=== PATIENT | male | born 1955 | race Caucasian/White ===

== ENCOUNTER 2022-10-29 17:33 | Inpatient (IN) | payer OTHER ==
[~2022-10-29] VITALS: Ht 182.9 cm; Wt 79.4 kg
[~2022-10-29 17:33] MED LIST: AMLODIPINE-ATO1 EAC1 PO; CARISOPRODOL350 MG PO; CLONIDINE HCL0.2 MG PO; HYDROCODONE 7.5/325 PO; HYDROCODONE PO; IBUPROFEN 800 MG; METOPROLOL TART25 MG PO; NIFEDIPINE ER30 M1 PO
[2022-10-29 18:26] LABS: BASOPHILS # (AUTO) 0.1 (0.0-0.1); BASOPHILS % 0.8 % (0.0-1.0); EOSINOPHILS % 0.2 % (0.0-6.0); HEMATOCRIT 36.9 % (38.2-49.6); HEMOGLOBIN 11.8 g/dL (14.0-18.0); LYMPHOCYTES % 11.8 % (18.0-39.1); MEAN CORPUSCULAR HEMOGLOBIN 30.6 pg (28-32); MEAN CORPUSCULAR VOLUME 95.8 fL (81-99); MONOCYTES # (AUTO) 0.9 (0.2-0.8); MONOCYTES % 10.7 % (4.4-11.3); NEUTROPHILS # (AUTO) 6.5 (2.1-6.9); NEUTROPHILS % 76.3 % (38.7-80.0); PLATELET COUNT 413 x10e3/uL (140-360); RED BLOOD COUNT 3.85 x10e6/uL (4.3-5.7); RED CELL DISTRIBUTION WIDTH 12.7 % (11.7-14.4)
[2022-10-29 18:35] LABS: INR 1.13
[2022-10-29 18:36] LABS: PARTIAL THROMBOPLASTIN TIME 38.8 seconds (23.8-35.5)
[2022-10-29 20:07] LABS: ALANINE AMINOTRANSFERASE 11 IU/L (0-55); ALBUMIN 2.1 g/dL (3.5-5.0); ALBUMIN/GLOBULIN RATIO 0.5 (0.8-2.0); ALKALINE PHOSPHATASE 83 IU/L (40-150); ANION GAP 15.6 mmol/L (8-16); BLOOD UREA NITROGEN 12 mg/dL (7-26); BUN/CREATININE RATIO 13 (6-25); CALCIUM 8.7 mg/dL (8.4-10.2); CARBON DIOXIDE 24 mmol/L (22-29); CHLORIDE 102 mmol/L (98-107); CREATININE, SERUM 0.92 mg/dL (0.72-1.25); GLUCOSE 113 mg/dL (74-118); POTASSIUM 3.6 mmol/L (3.5-5.1); SODIUM 138 mmol/L (136-145)
[2022-10-29] MEDS ORDERED: SODIUM CHLORIDE FLUSH 10 ML SYR INJ PRN (20:30)
[2022-10-29] MEDS ORDERED: ONDANSETRON HCL INJ 2MG/ML 2ML 2 MG/ML VIAL IV PRN (20:30)
[2022-10-29 22:39] VITALS: BP 154/105
[2022-10-29] MEDS: TRAMADOL HCL 50 MG TAB PO PRN (23:36)
[2022-10-29] MEDS: CHLORDIAZEPOXIDE HCL 25 MG CAP PO PRN (23:36)
[2022-10-29] MEDS: CLONIDINE HCL 0.1 MG TAB PO PRN (23:37)
[2022-10-30] VITALS (8 sets, daily range): BP systolic 122–157; BP diastolic 98–115
[2022-10-30] MEDS ORDERED: THIAMINE HCL INJ 100 MG/ML 2ML VIAL IV ONE (03:00)
[2022-10-30 03:32] LABS: FERRITIN 110.79 ng/mL (21.81-274.66)
[2022-10-30] MEDS ORDERED: FUROSEMIDE INJ 10 MG/ML 4 ML VIAL IV ONE (04:15)
[2022-10-30] MEDS ORDERED: SPIRONOLACTONE 25 MG TAB PO ONE (04:15)
[2022-10-30 07:03] LABS: BASOPHILS # (AUTO) 0.1 (0.0-0.1); BASOPHILS % 0.9 % (0.0-1.0); EOSINOPHILS # (AUTO) 0.1 (0.0-0.4); EOSINOPHILS % 1.2 % (0.0-6.0); HEMATOCRIT 29.5 % (38.2-49.6); HEMOGLOBIN 9.8 g/dL (14.0-18.0); LYMPHOCYTES # (AUTO) 1.3 (1.0-3.2); LYMPHOCYTES % 20.3 % (18.0-39.1); MEAN CORPUSCULAR HEMOGLOBIN 31.9 pg (28-32); MEAN CORPUSCULAR HGB CONC 33.2 g/dL (31-35); MEAN CORPUSCULAR VOLUME 96.1 fL (81-99); MONOCYTES # (AUTO) 0.9 (0.2-0.8); MONOCYTES % 14.1 % (4.4-11.3); NEUTROPHILS # (AUTO) 4.2 (2.1-6.9); NEUTROPHILS % 63.2 % (38.7-80.0); PLATELET COUNT 302 x10e3/uL (140-360); RED BLOOD COUNT 3.07 x10e6/uL (4.3-5.7); RED CELL DISTRIBUTION WIDTH 12.8 % (11.7-14.4)
[2022-10-30 07:21] LABS: ALBUMIN 1.8 g/dL (3.5-5.0); ALBUMIN/GLOBULIN RATIO 0.5 (0.8-2.0); ANION GAP 12.2 mmol/L (8-16); CALCIUM 8.2 mg/dL (8.4-10.2); CREATININE, SERUM 0.83 mg/dL (0.72-1.25); POTASSIUM 3.2 mmol/L (3.5-5.1)
[2022-10-30] MEDS ORDERED: FUROSEMIDE 40 MG TAB PO SCH (09:00)
[2022-10-30] MEDS ORDERED: THIAMINE HCL INJ 100 MG/ML 2ML VIAL IV SCH (09:00)
[2022-10-30] MEDS ORDERED: SPIRONOLACTONE 25 MG TAB PO SCH (09:00)
[2022-10-30] MEDS: IRON SUCROSE 100 MG in SODIUM CHLORIDE 0.9% 100 ML IV SCH ×2 (13:25→18:38)
[2022-10-30] MEDS: MULTIVITAMINS/MINERALS TAB PO SCH (18:06)
[2022-10-30] MEDS: CHLORDIAZEPOXIDE HCL 25 MG CAP PO PRN (21:56)
[2022-10-30] MEDS: TRAMADOL HCL 50 MG TAB PO PRN (21:56)
[2022-10-30] MEDS: CLONIDINE HCL 0.1 MG TAB PO PRN (21:57)
[2022-10-31] MEDS ORDERED: POTASSIUM CHLORIDE 10MEQ EA PO STA (00:32)
[2022-10-31 00:40] VITALS: BP 154/102
[2022-10-31] MEDS ORDERED: CYANOCOBALAMIN INJ 1,000 MCG/ML VIAL IM ONE (00:45)
[2022-10-31 04:00] VITALS: BP 126/92
[2022-10-31] MEDS: FUROSEMIDE 40 MG TAB PO SCH ×2 (05:25→17:04)
[2022-10-31 06:14] LABS: BASOPHILS # (AUTO) 0.1 (0.0-0.1); BASOPHILS % 0.9 % (0.0-1.0); EOSINOPHILS # (AUTO) 0.1 (0.0-0.4); HEMATOCRIT 31.7 % (38.2-49.6); HEMOGLOBIN 10.4 g/dL (14.0-18.0); LYMPHOCYTES # (AUTO) 1.1 (1.0-3.2); MEAN CORPUSCULAR HEMOGLOBIN 31.8 pg (28-32); MEAN CORPUSCULAR HGB CONC 32.8 g/dL (31-35); MEAN CORPUSCULAR VOLUME 96.9 fL (81-99); MONOCYTES # (AUTO) 0.9 (0.2-0.8); MONOCYTES % 13.4 % (4.4-11.3); NEUTROPHILS # (AUTO) 4.2 (2.1-6.9); NEUTROPHILS % 65.4 % (38.7-80.0); PLATELET COUNT 302 x10e3/uL (140-360); RED BLOOD COUNT 3.27 x10e6/uL (4.3-5.7); RED CELL DISTRIBUTION WIDTH 12.5 % (11.7-14.4)
[2022-10-31 06:47] LABS: ANION GAP 10.9 mmol/L (8-16); CALCIUM 8.2 mg/dL (8.4-10.2); CREATININE, SERUM 0.87 mg/dL (0.72-1.25); POTASSIUM 3.9 mmol/L (3.5-5.1)
[2022-10-31] MEDS ORDERED: SPIRONOLACTONE 25 MG TAB PO SCH (09:00)
[2022-10-31] MEDS ORDERED: FUROSEMIDE 40 MG TAB PO SCH (09:00)
[2022-10-31 09:15] VITALS: BP 152/95
[2022-10-31] MEDS: CYANOCOBALAMIN INJ 1,000 MCG/ML VIAL IM SCH (09:58)
[2022-10-31] MEDS: THIAMINE HCL INJ 100 MG/ML 2ML VIAL IV SCH (10:12)
[2022-10-31] MEDS: MULTIVITAMINS/MINERALS TAB PO SCH (10:13)
[2022-10-31] MEDS: SPIRONOLACTONE 25 MG TAB PO SCH ×2 (10:14→17:05)
[2022-10-31] MEDS ORDERED: SODIUM CHLORIDE 0.9% 250ML 250 ML ONE (11:26)
[2022-10-31 12:00] VITALS: BP 153/107
[2022-10-31] MEDS: IRON SUCROSE 100 MG in SODIUM CHLORIDE 0.9% 100 ML IV SCH (12:13)
[2022-10-31 16:06] VITALS: BP 170/104
[2022-10-31 20:00] VITALS: BP 148/99
[2022-10-31] MEDS: TRAMADOL HCL 50 MG TAB PO PRN (20:27)
[2022-10-31] MEDS: CHLORDIAZEPOXIDE HCL 25 MG CAP PO PRN (20:27)
[2022-11-01] VITALS (7 sets, daily range): BP systolic 133–174; BP diastolic 81–110
[2022-11-01] MEDS: TRAMADOL HCL 50 MG TAB PO PRN ×2 (02:06→17:24)
[2022-11-01] MEDS: FUROSEMIDE 40 MG TAB PO SCH ×3 (05:09→17:25)
[2022-11-01 06:05] LABS: BASOPHILS # (AUTO) 0.1 (0.0-0.1); BASOPHILS % 0.8 % (0.0-1.0); EOSINOPHILS % 0.6 % (0.0-6.0); HEMATOCRIT 30.6 % (38.2-49.6); HEMOGLOBIN 9.9 g/dL (14.0-18.0); LYMPHOCYTES % 13.9 % (18.0-39.1); MEAN CORPUSCULAR HEMOGLOBIN 32.1 pg (28-32); MEAN CORPUSCULAR HGB CONC 32.4 g/dL (31-35); MEAN CORPUSCULAR VOLUME 99.4 fL (81-99); MONOCYTES # (AUTO) 0.9 (0.2-0.8); MONOCYTES % 12.3 % (4.4-11.3); NEUTROPHILS # (AUTO) 5.2 (2.1-6.9); NEUTROPHILS % 72.1 % (38.7-80.0); PLATELET COUNT 295 x10e3/uL (140-360); RED BLOOD COUNT 3.08 x10e6/uL (4.3-5.7); RED CELL DISTRIBUTION WIDTH 12.9 % (11.7-14.4)
[2022-11-01 06:31] LABS: ANION GAP 13.4 mmol/L (8-16); CREATININE, SERUM 0.86 mg/dL (0.72-1.25); POTASSIUM 3.4 mmol/L (3.5-5.1)
[2022-11-01] MEDS: MULTIVITAMINS/MINERALS TAB PO SCH (09:00)
[2022-11-01] MEDS: CYANOCOBALAMIN INJ 1,000 MCG/ML VIAL IM SCH (09:00)
[2022-11-01] MEDS: SPIRONOLACTONE 25 MG TAB PO SCH ×2 (09:00→17:18)
[2022-11-01] MEDS: THIAMINE HCL INJ 100 MG/ML 2ML VIAL IV SCH (10:22)
[2022-11-01] MEDS ORDERED: SODIUM CHLORIDE 0.9% 250ML 0 ML ONE (10:34)
[2022-11-01] MEDS: IRON SUCROSE 100 MG in SODIUM CHLORIDE 0.9% 100 ML IV SCH (11:45)
[2022-11-01] MEDS: CHLORDIAZEPOXIDE HCL 25 MG CAP PO PRN (22:57)
[2022-11-02] VITALS (8 sets, daily range): BP systolic 113–161; BP diastolic 64–103
[2022-11-02] MEDS ORDERED: POTASSIUM CHLORIDE 10MEQ EA PO STA (00:46)
[2022-11-02] MEDS: FUROSEMIDE 40 MG TAB PO SCH (05:23)
[2022-11-02] MEDS: THIAMINE HCL INJ 100 MG/ML 2ML VIAL IV SCH (08:52)
[2022-11-02] MEDS: CYANOCOBALAMIN INJ 1,000 MCG/ML VIAL IM SCH (08:52)
[2022-11-02] MEDS: MULTIVITAMINS/MINERALS TAB PO SCH (08:53)
[2022-11-02] MEDS: SPIRONOLACTONE 25 MG TAB PO SCH ×2 (08:53→17:00)
[2022-11-02] MEDS: POTASSIUM CHLORIDE 10MEQ EA PO SCH ×2 (11:34→18:11)
[2022-11-02] MEDS ORDERED: ALBUMIN 25% 12.5GM 50ML 150 ML IV ONE (13:20)
[2022-11-02] MEDS: IRON SUCROSE 100 MG in SODIUM CHLORIDE 0.9% 100 ML IV SCH (15:09)
[2022-11-02] MEDS: FUROSEMIDE INJ 10 MG/ML 4 ML VIAL IV SCH ×2 (15:09→17:03)
[2022-11-02] MEDS: TRAMADOL HCL 50 MG TAB PO PRN (15:14)
[2022-11-02 16:03] LABS: BODY FLUID APPEARANCE CLOUDY; BODY FLUID COLOR YELLOW; BODY FLUID TYPE PERITONEAL; RBC,BODY FLUID < 2000 cells/uL; WBC,BODY FLUID 106 cells/uL
[2022-11-02 16:44] LABS: LYMPHOCYTES,BODY FLUID 26 %; MONO/MACROPHG,BODY FLUID 24 %; NEUTROPHILS,BODY FLUID 10 %; OTHER CELLS,BODY FLUID 40 %
[2022-11-02] MEDS: CHLORDIAZEPOXIDE HCL 25 MG CAP PO PRN (22:39)
[2022-11-03] VITALS (8 sets, daily range): BP systolic 122–177; BP diastolic 71–99
[2022-11-03 06:25] LABS: ANION GAP 12.8 mmol/L (8-16); CALCIUM 8.3 mg/dL (8.4-10.2); POTASSIUM 3.8 mmol/L (3.5-5.1)
[2022-11-03] MEDS: POTASSIUM CHLORIDE 10MEQ EA PO SCH ×2 (08:16→18:41)
[2022-11-03] MEDS: SPIRONOLACTONE 25 MG TAB PO SCH ×2 (08:16→18:42)
[2022-11-03] MEDS: THIAMINE HCL 100 MG TAB PO SCH (08:16)
[2022-11-03] MEDS: CYANOCOBALAMIN 1,000 MCG TAB PO SCH (08:17)
[2022-11-03] MEDS: FUROSEMIDE INJ 10 MG/ML 4 ML VIAL IV SCH ×2 (08:17→11:37)
[2022-11-03] MEDS: MULTIVITAMINS/MINERALS TAB PO SCH (08:17)
[2022-11-03] MEDS: FOLIC ACID 1 MG TAB PO SCH (08:17)
[2022-11-03] MEDS: TRAMADOL HCL 50 MG TAB PO PRN ×2 (08:23→15:59)
[2022-11-03] MEDS: IRON SUCROSE 100 MG in SODIUM CHLORIDE 0.9% 100 ML IV SCH (11:37)
[2022-11-03] MEDS: CHLORDIAZEPOXIDE HCL 25 MG CAP PO PRN (21:46)
[2022-11-04] VITALS (8 sets, daily range): BP systolic 115–147; BP diastolic 77–95
[2022-11-04 05:51] LABS: BASOPHILS # (AUTO) 0.1 (0.0-0.1); BASOPHILS % 0.9 % (0.0-1.0); EOSINOPHILS # (AUTO) 0.1 (0.0-0.4); EOSINOPHILS % 1.6 % (0.0-6.0); HEMATOCRIT 31.1 % (38.2-49.6); HEMOGLOBIN 10.1 g/dL (14.0-18.0); LYMPHOCYTES # (AUTO) 1.2 (1.0-3.2); LYMPHOCYTES % 14.6 % (18.0-39.1); MEAN CORPUSCULAR HEMOGLOBIN 31.3 pg (28-32); MEAN CORPUSCULAR HGB CONC 32.5 g/dL (31-35); MEAN CORPUSCULAR VOLUME 96.3 fL (81-99); MONOCYTES # (AUTO) 0.9 (0.2-0.8); MONOCYTES % 11.9 % (4.4-11.3); NEUTROPHILS # (AUTO) 5.6 (2.1-6.9); NEUTROPHILS % 70.5 % (38.7-80.0); PLATELET COUNT 276 x10e3/uL (140-360); RED BLOOD COUNT 3.23 x10e6/uL (4.3-5.7); RED CELL DISTRIBUTION WIDTH 12.6 % (11.7-14.4)
[2022-11-04 06:26] LABS: ALBUMIN 1.8 g/dL (3.5-5.0); ALBUMIN/GLOBULIN RATIO 0.5 (0.8-2.0); ANION GAP 13.9 mmol/L (8-16); CREATININE, SERUM 0.97 mg/dL (0.72-1.25); POTASSIUM 3.9 mmol/L (3.5-5.1)
[2022-11-04] MEDS ORDERED: ONDANSETRON HCL 4 MG ORAL DISINTEGRATING TAB PO PRN (08:30)
[2022-11-04] MEDS: THIAMINE HCL 100 MG TAB PO SCH (09:28)
[2022-11-04] MEDS: CYANOCOBALAMIN 1,000 MCG TAB PO SCH (09:29)
[2022-11-04] MEDS: SPIRONOLACTONE 25 MG TAB PO SCH ×2 (09:29→16:35)
[2022-11-04] MEDS: FOLIC ACID 1 MG TAB PO SCH (09:29)
[2022-11-04] MEDS: POTASSIUM CHLORIDE 10MEQ EA PO SCH ×2 (09:30→16:35)
[2022-11-04] MEDS: IRON SUCROSE 100 MG in SODIUM CHLORIDE 0.9% 100 ML IV SCH (09:30)
[2022-11-04] MEDS: MULTIVITAMINS/MINERALS TAB PO SCH (09:30)
[2022-11-04] MEDS: FUROSEMIDE INJ 10 MG/ML 4 ML VIAL IV SCH ×2 (09:33→12:00)
[2022-11-04] MEDS: TRAMADOL HCL 50 MG TAB PO PRN ×2 (13:45→21:42)
[2022-11-05] VITALS (8 sets, daily range): BP systolic 113–145; BP diastolic 88–98
[2022-11-05] MEDS: CHLORDIAZEPOXIDE HCL 25 MG CAP PO PRN ×2 (01:04→22:46)
[2022-11-05] MEDS: CYANOCOBALAMIN 1,000 MCG TAB PO SCH (08:49)
[2022-11-05] MEDS: FOLIC ACID 1 MG TAB PO SCH (08:49)
[2022-11-05] MEDS: SPIRONOLACTONE 25 MG TAB PO SCH ×2 (08:49→16:24)
[2022-11-05] MEDS: POTASSIUM CHLORIDE 10MEQ EA PO SCH ×2 (08:49→16:24)
[2022-11-05] MEDS: THIAMINE HCL 100 MG TAB PO SCH (08:49)
[2022-11-05] MEDS: MULTIVITAMINS/MINERALS TAB PO SCH (08:49)
[2022-11-05] MEDS: FUROSEMIDE INJ 10 MG/ML 4 ML VIAL IV SCH ×2 (08:49→12:36)
[2022-11-05] MEDS: TRAMADOL HCL 50 MG TAB PO PRN ×2 (12:36→22:46)
[2022-11-05] MEDS: IRON SUCROSE 100 MG in SODIUM CHLORIDE 0.9% 100 ML IV SCH (12:42)
[2022-11-06] VITALS (8 sets, daily range): BP systolic 97–141; BP diastolic 62–98
[2022-11-06 07:36] LABS: ANION GAP 14.5 mmol/L (8-16); CALCIUM 8.8 mg/dL (8.4-10.2); CREATININE, SERUM 1.07 mg/dL (0.72-1.25); POTASSIUM 4.5 mmol/L (3.5-5.1)
[2022-11-06] MEDS: FUROSEMIDE INJ 10 MG/ML 4 ML VIAL IV SCH ×2 (09:38→13:30)
[2022-11-06] MEDS: CYANOCOBALAMIN 1,000 MCG TAB PO SCH (09:39)
[2022-11-06] MEDS: THIAMINE HCL 100 MG TAB PO SCH (09:39)
[2022-11-06] MEDS: SPIRONOLACTONE 25 MG TAB PO SCH ×2 (09:39→17:04)
[2022-11-06] MEDS: POTASSIUM CHLORIDE 10MEQ EA PO SCH ×2 (09:39→17:05)
[2022-11-06] MEDS: FOLIC ACID 1 MG TAB PO SCH (09:39)
[2022-11-06] MEDS: MULTIVITAMINS/MINERALS TAB PO SCH (09:39)
[2022-11-06] MEDS: TAMSULOSIN HCL 0.4 MG CAP PO SCH (17:05)
[2022-11-07] VITALS (7 sets, daily range): BP systolic 128–158; BP diastolic 71–108
[2022-11-07] MEDS: CHLORDIAZEPOXIDE HCL 25 MG CAP PO PRN ×2 (00:11→21:19)
[2022-11-07 07:55] LABS: BASOPHILS # (AUTO) 0.1 (0.0-0.1); BASOPHILS % 0.9 % (0.0-1.0); EOSINOPHILS # (AUTO) 0.1 (0.0-0.4); EOSINOPHILS % 1.4 % (0.0-6.0); HEMATOCRIT 31.9 % (38.2-49.6); HEMOGLOBIN 10.6 g/dL (14.0-18.0); LYMPHOCYTES # (AUTO) 1.3 (1.0-3.2); LYMPHOCYTES % 19.9 % (18.0-39.1); MEAN CORPUSCULAR HEMOGLOBIN 32.3 pg (28-32); MEAN CORPUSCULAR HGB CONC 33.2 g/dL (31-35); MEAN CORPUSCULAR VOLUME 97.3 fL (81-99); MONOCYTES # (AUTO) 0.8 (0.2-0.8); NEUTROPHILS # (AUTO) 4.3 (2.1-6.9); NEUTROPHILS % 65.3 % (38.7-80.0); PLATELET COUNT 295 x10e3/uL (140-360); RED BLOOD COUNT 3.28 x10e6/uL (4.3-5.7); RED CELL DISTRIBUTION WIDTH 13.2 % (11.7-14.4)
[2022-11-07] MEDS: FUROSEMIDE INJ 10 MG/ML 4 ML VIAL IV SCH ×2 (08:03→13:08)
[2022-11-07 08:31] LABS: ANION GAP 15.2 mmol/L (8-16); CALCIUM 8.4 mg/dL (8.4-10.2); CREATININE, SERUM 1.06 mg/dL (0.72-1.25); POTASSIUM 4.2 mmol/L (3.5-5.1)
[2022-11-07] MEDS: FOLIC ACID 1 MG TAB PO SCH (09:58)
[2022-11-07] MEDS: THIAMINE HCL 100 MG TAB PO SCH (09:58)
[2022-11-07] MEDS: POTASSIUM CHLORIDE 10MEQ EA PO SCH ×2 (09:58→17:57)
[2022-11-07] MEDS: MULTIVITAMINS/MINERALS TAB PO SCH (09:58)
[2022-11-07] MEDS: TAMSULOSIN HCL 0.4 MG CAP PO SCH ×2 (09:58→17:57)
[2022-11-07] MEDS: SPIRONOLACTONE 25 MG TAB PO SCH ×2 (09:59→17:57)
[2022-11-07] MEDS: IRON-VITAMIN-MINERAL CAPSULE PO SCH ×2 (09:59→17:57)
[2022-11-07] MEDS: CYANOCOBALAMIN 1,000 MCG TAB PO SCH (09:59)
[2022-11-07] MEDS: TRAMADOL HCL 50 MG TAB PO PRN (21:19)
[2022-11-08] VITALS (7 sets, daily range): BP systolic 105–147; BP diastolic 86–96
[2022-11-08 06:15] LABS: BASOPHILS # (AUTO) 0.1 (0.0-0.1); BASOPHILS % 0.8 % (0.0-1.0); EOSINOPHILS # (AUTO) 0.1 (0.0-0.4); EOSINOPHILS % 1.2 % (0.0-6.0); HEMATOCRIT 30.4 % (38.2-49.6); HEMOGLOBIN 10.1 g/dL (14.0-18.0); LYMPHOCYTES # (AUTO) 1.2 (1.0-3.2); MEAN CORPUSCULAR HEMOGLOBIN 32.9 pg (28-32); MEAN CORPUSCULAR HGB CONC 33.2 g/dL (31-35); MONOCYTES # (AUTO) 0.8 (0.2-0.8); MONOCYTES % 11.9 % (4.4-11.3); NEUTROPHILS # (AUTO) 4.5 (2.1-6.9); NEUTROPHILS % 67.8 % (38.7-80.0); PLATELET COUNT 277 x10e3/uL (140-360); RED BLOOD COUNT 3.07 x10e6/uL (4.3-5.7); RED CELL DISTRIBUTION WIDTH 13.4 % (11.7-14.4)
[2022-11-08 06:36] LABS: ANION GAP 14.1 mmol/L (8-16); CALCIUM 8.6 mg/dL (8.4-10.2); CREATININE, SERUM 1.12 mg/dL (0.72-1.25); POTASSIUM 4.1 mmol/L (3.5-5.1)
[2022-11-08] MEDS: MULTIVITAMINS/MINERALS TAB PO SCH (09:04)
[2022-11-08] MEDS: FUROSEMIDE INJ 10 MG/ML 4 ML VIAL IV SCH ×3 (09:04→12:35)
[2022-11-08] MEDS: SPIRONOLACTONE 25 MG TAB PO SCH ×2 (09:05→16:27)
[2022-11-08] MEDS: POTASSIUM CHLORIDE 10MEQ EA PO SCH ×2 (09:05→16:27)
[2022-11-08] MEDS: CYANOCOBALAMIN 1,000 MCG TAB PO SCH (09:05)
[2022-11-08] MEDS: FOLIC ACID 1 MG TAB PO SCH (09:05)
[2022-11-08] MEDS: THIAMINE HCL 100 MG TAB PO SCH (09:05)
[2022-11-08] MEDS: TAMSULOSIN HCL 0.4 MG CAP PO SCH ×2 (09:06→16:27)
[2022-11-08] MEDS: IRON-VITAMIN-MINERAL CAPSULE PO SCH ×2 (09:06→16:26)
[2022-11-08] MEDS: TRAMADOL HCL 50 MG TAB PO PRN (18:23)
[2022-11-08] MEDS: CHLORDIAZEPOXIDE HCL 25 MG CAP PO PRN (21:22)
[2022-11-09] VITALS (8 sets, daily range): BP systolic 119–143; BP diastolic 72–92
[2022-11-09 06:31] LABS: ALBUMIN 2.1 g/dL (3.5-5.0); ALBUMIN/GLOBULIN RATIO 0.5 (0.8-2.0); ANION GAP 12.3 mmol/L (8-16); CREATININE, SERUM 1.11 mg/dL (0.72-1.25); POTASSIUM 4.3 mmol/L (3.5-5.1)
[2022-11-09] MEDS: TAMSULOSIN HCL 0.4 MG CAP PO SCH ×2 (09:13→17:06)
[2022-11-09] MEDS: MULTIVITAMINS/MINERALS TAB PO SCH (09:13)
[2022-11-09] MEDS: IRON-VITAMIN-MINERAL CAPSULE PO SCH ×2 (09:13→17:06)
[2022-11-09] MEDS: FOLIC ACID 1 MG TAB PO SCH (09:13)
[2022-11-09] MEDS: FUROSEMIDE INJ 10 MG/ML 4 ML VIAL IV SCH ×2 (09:13→12:29)
[2022-11-09] MEDS: THIAMINE HCL 100 MG TAB PO SCH (09:13)
[2022-11-09] MEDS: CYANOCOBALAMIN 1,000 MCG TAB PO SCH (09:14)
[2022-11-09] MEDS: SPIRONOLACTONE 25 MG TAB PO SCH ×2 (09:14→17:06)
[2022-11-09] MEDS: POTASSIUM CHLORIDE 10MEQ EA PO SCH ×2 (09:14→17:07)
[2022-11-09] MEDS: CHLORDIAZEPOXIDE HCL 25 MG CAP PO PRN (20:59)
[2022-11-10] VITALS (8 sets, daily range): BP systolic 125–159; BP diastolic 86–93
[2022-11-10] MEDS: THIAMINE HCL 100 MG TAB PO SCH (11:54)
[2022-11-10] MEDS: FUROSEMIDE INJ 10 MG/ML 4 ML VIAL IV SCH ×2 (11:54→14:36)
[2022-11-10] MEDS: MULTIVITAMINS/MINERALS TAB PO SCH (11:54)
[2022-11-10] MEDS: SPIRONOLACTONE 25 MG TAB PO SCH ×2 (11:54→17:06)
[2022-11-10] MEDS: CYANOCOBALAMIN 1,000 MCG TAB PO SCH (11:55)
[2022-11-10] MEDS: POTASSIUM CHLORIDE 10MEQ EA PO SCH ×2 (11:55→17:06)
[2022-11-10] MEDS: IRON-VITAMIN-MINERAL CAPSULE PO SCH ×2 (11:55→17:07)
[2022-11-10] MEDS: FOLIC ACID 1 MG TAB PO SCH (11:55)
[2022-11-10] MEDS: TAMSULOSIN HCL 0.4 MG CAP PO SCH ×2 (11:55→17:06)
[2022-11-10] MEDS: TRAMADOL HCL 50 MG TAB PO PRN (21:14)
[2022-11-11 01:32] VITALS: BP 146/76
[2022-11-11 06:02] LABS: BASOPHILS # (AUTO) 0.1 (0.0-0.1); BASOPHILS % 1.2 % (0.0-1.0); EOSINOPHILS # (AUTO) 0.1 (0.0-0.4); EOSINOPHILS % 1.2 % (0.0-6.0); HEMATOCRIT 31.9 % (38.2-49.6); HEMOGLOBIN 10.1 g/dL (14.0-18.0); LYMPHOCYTES # (AUTO) 1.3 (1.0-3.2); LYMPHOCYTES % 19.4 % (18.0-39.1); MEAN CORPUSCULAR HEMOGLOBIN 30.5 pg (28-32); MEAN CORPUSCULAR HGB CONC 31.7 g/dL (31-35); MEAN CORPUSCULAR VOLUME 96.4 fL (81-99); MONOCYTES # (AUTO) 0.9 (0.2-0.8); MONOCYTES % 13.4 % (4.4-11.3); NEUTROPHILS # (AUTO) 4.3 (2.1-6.9); NEUTROPHILS % 64.3 % (38.7-80.0); PLATELET COUNT 347 x10e3/uL (140-360); RED BLOOD COUNT 3.31 x10e6/uL (4.3-5.7); RED CELL DISTRIBUTION WIDTH 12.8 % (11.7-14.4)
[2022-11-11 06:15] VITALS: BP 130/78
[2022-11-11 06:24] LABS: ANION GAP 12.5 mmol/L (8-16); CALCIUM 9.3 mg/dL (8.4-10.2); CREATININE, SERUM 1.24 mg/dL (0.72-1.25); POTASSIUM 4.5 mmol/L (3.5-5.1)
[2022-11-11] MEDS: FUROSEMIDE INJ 10 MG/ML 4 ML VIAL IV SCH ×2 (08:00→12:00)
[2022-11-11 09:06] VITALS: BP 134/81
[2022-11-11] MEDS: TAMSULOSIN HCL 0.4 MG CAP PO SCH ×2 (09:15→17:14)
[2022-11-11] MEDS: CYANOCOBALAMIN 1,000 MCG TAB PO SCH (09:15)
[2022-11-11] MEDS: SPIRONOLACTONE 25 MG TAB PO SCH ×2 (09:15→17:00)
[2022-11-11] MEDS: IRON-VITAMIN-MINERAL CAPSULE PO SCH ×2 (09:15→17:13)
[2022-11-11] MEDS: THIAMINE HCL 100 MG TAB PO SCH (09:15)
[2022-11-11] MEDS: MULTIVITAMINS/MINERALS TAB PO SCH (09:15)
[2022-11-11] MEDS: FOLIC ACID 1 MG TAB PO SCH (09:15)
[2022-11-11] MEDS: POTASSIUM CHLORIDE 10MEQ EA PO SCH ×2 (09:15→17:14)
[2022-11-11 09:40] VITALS: BP 134/81
[2022-11-11 12:59] VITALS: BP 107/74
[2022-11-12] MEDS ORDERED: FUROSEMIDE 40 MG TAB PO SCH (08:00)
== END 2022-11-11 18:10 | disposition home or self-care (01) | DRG 433 ==
LOC: ER 18:16 → ERHOLD 20:20 → MED/SURG2 22:18
PROVIDERS: ADMIT Internal Medicine; ATTEND Internal Medicine
PROC: 0W9G3ZZ Drainage of Peritoneal Cavity, Percutaneous Approach (ICD-10-PCS; principal; 2022-11-02)
DX: K70.31 Alcoholic cirrhosis of liver with ascites (principal); E46 Unspecified protein-calorie malnutrition; J90 Pleural effusion, not elsewhere classified; I12.9 Hypertensive chronic kidney disease with stage 1 through stage 4 chronic kidney disease, or unspecified chronic kidney disease; N18.2 Chronic kidney disease, stage 2 (mild); G89.29 Other chronic pain; F10.20 Alcohol dependence, uncomplicated; E61.1 Iron deficiency; N50.89 Other specified disorders of the male genital organs; N40.0 Benign prostatic hyperplasia without lower urinary tract symptoms; R60.1 Generalized edema; D63.1 Anemia in chronic kidney disease; Z68.23 Body mass index [BMI] 23.0-23.9, adult; E87.8 Other disorders of electrolyte and fluid balance, not elsewhere classified; Z20.822 Contact with and (suspected) exposure to COVID-19
CPT/HCPCS: 0223U; 36415; 49083; 71045; 74176; 74470; 80048; 80053; 80320; 82040; 82140; 82607; 82728; 82746; 83540; 83880; 84157; 84466; 85025; 85045; 85610; 85730; 87070; 87205; 88112; 88305; 89051; 93005; 94799; 96360; 96361; 99252; 99284; C1729; J1756; J1940; J3411; J3420; J7050

== ENCOUNTER 2023-02-03 11:49 | Observation (INO) | payer OTHER ==
[~2023-02-03] VITALS: Ht 182.9 cm; Wt 68.0 kg
[2023-02-03] MEDS ORDERED: SODIUM CHLORIDE 0.9% 1000ML 1,000 ML ONE (12:41)
[2023-02-03] MEDS ORDERED: SODIUM CHLORIDE 0.9% 1000ML 1,000 ML IV STA ×2 (12:41→14:01)
[2023-02-03 13:50] LABS: ALBUMIN 3.6 g/dL (3.5-5.0); ALBUMIN/GLOBULIN RATIO 0.8 (0.8-2.0); ANION GAP 16.1 mmol/L (8-16); CALCIUM 9.2 mg/dL (8.4-10.2); CREATININE, SERUM 1.38 mg/dL (0.72-1.25)
[2023-02-03 13:51] LABS: POTASSIUM 6.1 mmol/L (3.5-5.1)
[2023-02-03] MEDS ORDERED: DEXTROSE 50% SYRINGE 50 ML IV STA (14:26)
[2023-02-03] MEDS ORDERED: ALBUTEROL SULF 0.083% NEB SOLN 3 ML NEB NEB STA (14:26)
[2023-02-03] MEDS ORDERED: ONDANSETRON HCL INJ 2MG/ML 2ML 2 MG/ML VIAL IV PRN (14:30)
[2023-02-03] MEDS ORDERED: INSULIN REGULAR, HUMAN 100 UNIT/1 ML IV ONE (14:30)
[2023-02-03 14:35] LABS: BASOPHILS # (AUTO) 0.1 (0.0-0.1); BASOPHILS % 0.9 % (0.0-1.0); EOSINOPHILS % 0.4 % (0.0-6.0); HEMATOCRIT 33.1 % (38.2-49.6); HEMOGLOBIN 10.5 g/dL (14.0-18.0); LYMPHOCYTES # (AUTO) 1.3 (1.0-3.2); LYMPHOCYTES % 12.4 % (18.0-39.1); MEAN CORPUSCULAR HEMOGLOBIN 27.3 pg (28-32); MEAN CORPUSCULAR HGB CONC 31.7 g/dL (31-35); MONOCYTES # (AUTO) 0.9 (0.2-0.8); MONOCYTES % 8.6 % (4.4-11.3); NEUTROPHILS # (AUTO) 7.9 (2.1-6.9); NEUTROPHILS % 77.4 % (38.7-80.0); PLATELET COUNT 462 x10e3/uL (140-360); RED BLOOD COUNT 3.85 x10e6/uL (4.3-5.7); RED CELL DISTRIBUTION WIDTH 13.2 % (11.7-14.4)
[2023-02-03 14:41] LABS: INR 1.07; PROTHROMBIN TIME 14.5 seconds (11.9-14.5)
[2023-02-03 14:42] LABS: PARTIAL THROMBOPLASTIN TIME 41.3 seconds (23.8-35.5)
[2023-02-03] MEDS ORDERED: CALCIUM GLUC 1 G/50 ML NACL 100 ML IV ONE (14:45)
[2023-02-03 14:49] VITALS: PULSE 74; RESP 20; O2SAT 98
[2023-02-03] MEDS ORDERED: SODIUM BICARBONATE 8.4% INJ 50 ML SYR IV ONE (15:00)
[2023-02-03] MEDS ORDERED: SIMETHICONE 80 MG CHEW PO PRN (18:45)
[2023-02-03] MEDS ORDERED: MELATONIN 3 MG TAB PO PRN (18:45)
[2023-02-03] MEDS ORDERED: DOCUSATE SODIUM 100 MG CAP PO PRN (18:45)
[2023-02-03 18:46] LABS: ANION GAP 17.9 mmol/L (8-16); CALCIUM 9.7 mg/dL (8.4-10.2); CREATININE, SERUM 1.31 mg/dL (0.72-1.25); POTASSIUM 4.9 mmol/L (3.5-5.1)
[2023-02-03 20:00] VITALS: BP 135/66; PULSE 88; RESP 18; TEMP 97.2; O2SAT 100
[2023-02-03 20:55] VITALS: PULSE 76; RESP 20; O2SAT 99
[2023-02-03] MEDS ORDERED: SPIRONOLACTONE50 MG PO (21:13)
[2023-02-03] MEDS ORDERED: B-1100 M1 PO (21:13)
[2023-02-03] MEDS ORDERED: CHLORDIAZEPOXID25 MG PO (21:13)
[2023-02-03] MEDS ORDERED: POTASSIUM CHLO20 ME1 PO (21:13)
[2023-02-03] MEDS ORDERED: FUROSEMIDE40 MG PO (21:13)
[2023-02-03] MEDS ORDERED: FOLIC ACID-VIT1 EACH PO (21:13)
[2023-02-03] MEDS ORDERED: AMLODIPINE BESY10 MG PO (21:13)
[2023-02-03] MEDS ORDERED: CLONIDINE HCL0.1 MG PO (21:13)
[2023-02-03] MEDS ORDERED: FLOMAX0.4 MG PO (21:13)
[2023-02-03 21:19] VITALS: BP 142/98; PULSE 78; RESP 18; O2SAT 99
[2023-02-03] MEDS: Morphine 2mg Syringe 2 MG/ML SYR IV PRN (22:33)
[2023-02-04] VITALS (8 sets, daily range): BP systolic 132–152; BP diastolic 71–91; PULSE 83–97; RESP 16–22; TEMP 97.5–98; O2SAT 96–100
[2023-02-04 05:30] LABS: BASOPHILS # (AUTO) 0.1 (0.0-0.1); BASOPHILS % 0.7 % (0.0-1.0); EOSINOPHILS # (AUTO) 0.1 (0.0-0.4); EOSINOPHILS % 0.8 % (0.0-6.0); HEMATOCRIT 32.9 % (38.2-49.6); HEMOGLOBIN 10.8 g/dL (14.0-18.0); LYMPHOCYTES # (AUTO) 1.2 (1.0-3.2); MEAN CORPUSCULAR HEMOGLOBIN 27.3 pg (28-32); MEAN CORPUSCULAR HGB CONC 32.8 g/dL (31-35); MEAN CORPUSCULAR VOLUME 83.3 fL (81-99); MONOCYTES # (AUTO) 0.8 (0.2-0.8); MONOCYTES % 9.3 % (4.4-11.3); NEUTROPHILS # (AUTO) 6.3 (2.1-6.9); PLATELET COUNT 399 x10e3/uL (140-360); RED BLOOD COUNT 3.95 x10e6/uL (4.3-5.7); RED CELL DISTRIBUTION WIDTH 13.3 % (11.7-14.4)
[2023-02-04] MEDS: SODIUM CHLORIDE 0.9% 1000ML 1,000 ML IV SCH ×4 (05:50→14:30)
[2023-02-04 06:17] LABS: ALBUMIN/GLOBULIN RATIO 0.7 (0.8-2.0); CALCIUM 9.2 mg/dL (8.4-10.2); CREATININE, SERUM 1.08 mg/dL (0.72-1.25)
[2023-02-04] MEDS: FOLIC ACID 1 MG TAB PO SCH (10:06)
[2023-02-04] MEDS: THIAMINE HCL 100 MG TAB PO SCH (10:07)
[2023-02-04] MEDS: ACETAMINOPHEN/CODEINE 300MG - 30MG TAB PO PRN ×3 (10:58→20:37)
[2023-02-04 15:54] LABS: BLOOD UREA NITROGEN 31 mg/dL (7-26); GLUCOSE 135 mg/dL (74-118); OSMOLALITY,SERUM 266 mOsm/kg (278-305); SODIUM 128 mmol/L (136-145)
[2023-02-04] MEDS: SODIUM CHLORIDE 1 GM TAB PO SCH ×2 (16:23→20:36)
[2023-02-04] MEDS: Morphine 2mg Syringe 2 MG/ML SYR IV PRN (22:55)
[2023-02-05] VITALS: BP 147/70; PULSE 79; RESP 18; TEMP 97.7; O2SAT 100
[2023-02-05] MEDS: SODIUM CHLORIDE 0.9% 1000ML 1,000 ML IV SCH ×3 (02:44→14:30)
[2023-02-05 04:00] VITALS: BP 169/86; PULSE 102; RESP 18; TEMP 97.7; O2SAT 100
[2023-02-05] MEDS: SODIUM CHLORIDE 1 GM TAB PO SCH ×2 (05:35→14:00)
[2023-02-05 07:40] VITALS: BP 128/84; PULSE 98; RESP 21; TEMP 98.7; O2SAT 100
[2023-02-05] MEDS ORDERED: B-1100 MG PO (08:16)
[2023-02-05] MEDS ORDERED: Folic Acid PO (08:16)
[2023-02-05] MEDS ORDERED: SODIUM CHLORI1000 M2 PO (08:16)
[2023-02-05] MEDS ORDERED: SODIUM BICARBO650 MG PO (08:17)
[2023-02-05 09:44] LABS: ANION GAP 14.9 mmol/L (8-16); CREATININE, SERUM 1.14 mg/dL (0.72-1.25); POTASSIUM 4.9 mmol/L (3.5-5.1)
[2023-02-05] MEDS: THIAMINE HCL 100 MG TAB PO SCH (10:01)
[2023-02-05] MEDS: FOLIC ACID 1 MG TAB PO SCH (10:02)
[2023-02-05 10:08] VITALS: BP 128/84; PULSE 98; RESP 21; TEMP 98.7; O2SAT 100
[2023-02-05 11:55] VITALS: BP 134/81; PULSE 88; RESP 19; TEMP 98.6; O2SAT 100
[2023-02-05] MEDS: ACETAMINOPHEN/CODEINE 300MG - 30MG TAB PO PRN (14:10)
== END 2023-02-05 14:38 | disposition home or self-care (01) ==
LOC: ER 12:03 → ERHOLD 14:22 → MED/SURG 18:56
PROVIDERS: ADMIT Internal Medicine; ATTEND Internal Medicine
DX: E22.2 Syndrome of inappropriate secretion of antidiuretic hormone (principal); E87.5 Hyperkalemia; N17.9 Acute kidney failure, unspecified; K70.30 Alcoholic cirrhosis of liver without ascites; E87.20 Acidosis, unspecified
CPT/HCPCS: 0223U; 36415 ×3; 71046; 80048 ×2; 80053 ×2; 82550 ×2; 82947; 83880; 83935; 84295 ×2; 84300; 84484 ×2; 84520; 85025 ×2; 85610; 85730; 93005 ×2; 94640; 94799 ×2; 99284; G0378 ×3; J2270 ×2; J2405; J3411 ×2; J7030 ×3; J7799